=== PATIENT | female | born 1950 | race Caucasian/White ===

== ENCOUNTER 2024-05-11 08:23 | Outpatient (CLI) | payer MEDICARE, MEDICAID ==
[~2024-05-11 08:23] MED LIST: AMLO2.5T2 PO; CHOL20002 PO; CYAN250T3 PO; DONE-46 PO; FERR325T29 PO; MELO-102 PO; QUET50TA24 PO; RISP0.253 PO
[2024-05-11] MEDS ORDERED: iohexol 300mg/ml 100ml inj. ONE (09:12)
== END 2024-05-11 23:59 | disposition home or self-care (01) ==
LOC: RAD 08:23
PROVIDERS: ATTEND Family Medicine
DX: R44.3 Hallucinations, unspecified (principal); R51.9 Headache, unspecified; M79.89 Other specified soft tissue disorders
CPT/HCPCS: 70470; Q9967